=== PATIENT | male | born 1940 | race Caucasian/White ===

== ENCOUNTER 2018-10-29 06:40 | Inpatient (IN) | payer OTHER ==
[2018-10-16 11:30] LABS: BASOPHILS % (AUTO) 0.4 % (0.0-2.0); EOSINOPHILS # (AUTO) 0.1 K/uL (0.0-0.4); EOSINOPHILS % (AUTO) 0.8 % (0.0-4.0); HEMATOCRIT 39.7 % (36-54); HEMOGLOBIN 13.3 g/dL (14.0-18.0); LYMPHOCYTES # (AUTO) 1.8 K/uL (1.0-5.5); LYMPHOCYTES % (AUTO) 27.5 % (20.5-51.5); MEAN CORPUSCULAR HEMOGLOBIN 33 pg (27-31); MEAN CORPUSCULAR HGB CONC 34 % (32-36); MEAN CORPUSCULAR VOLUME 99 fL (79.0-98.0); MONOCYTES # (AUTO) 0.8 K/uL (0.0-1.0); NEUTROPHILS # (AUTO) 3.8 K/uL (1.8-7.7); NEUTROPHILS % (AUTO) 59.3 % (40.0-70.0); PLATELET COUNT (AUTO) 181 K/uL (130-430); RED CELL DISTRIBUTION WIDTH 13.3 % (9.0-15.0); WHITE BLOOD COUNT (AUTO) 6.4 K/uL (4.8-10.8)
[2018-10-16 11:34] LABS: BILIRUBIN,URINE NEGATIVE (NEGATIVE); BLOOD, URINE NEGATIVE (NEGATIVE); CLARITY/URINE CLEAR (CLEAR); COLOR,URINE YELLOW (YELLOW); GLUCOSE,URINE NEGATIVE (NEGATIVE); KETONES,URINE NEGATIVE (NEGATIVE); LEUKOCYTE ESTERASE ,URINE NEGATIVE (NEGATIVE); NITRITE, URINE NEGATIVE (NEGATIVE); PH,URINE 6.5 (5.0-8.0); PROTEIN URINE NEGATIVE (NEGATIVE); UROBILINOGEN,URINE 0.2 (0.2-1.0)
[2018-10-16 11:46] LABS: PROTHROMBIN TIME 10.4 SECS (9.5-12.5)
[2018-10-16 11:52] LABS: ANION GAP 4 (5-15); CALCIUM 9.5 mg/dL (8.4-11.0); CHLORIDE 101 mmol/L (98-107); CREATININE 0.84 mg/dL (0.55-1.30); GLUCOSE 81 mg/dL (70-99); POTASSIUM 4.1 mmol/L (3.5-5.1); SODIUM SERUM 134 mmol/L (136-145); UREA NITROGEN, BLOOD 21 mg/dL (8-21)
[~2018-10-29] VITALS: Ht 167.6 cm; Wt 71.2 kg
[~2018-10-29 06:40] MED LIST: APIX5TAB4 PO
[2018-10-29] MEDS ORDERED: oxyCODONE HCL 10 MG TAB.ER.12H PO ONE ×2 (07:00→07:15)
[2018-10-29] MEDS ORDERED: CEFAZOLIN 2 GM IVPB PREMIX 50 ML IV ONE (07:00)
[2018-10-29] MEDS ORDERED: NACL 0.9% 1,000 ML IV ONE (07:00)
[2018-10-29] MEDS ORDERED: CELECOXIB 200 MG CAPSULE PO ONE (07:00)
[2018-10-29] MEDS ORDERED: GABAPENTIN 300 MG CAPSULE PO ONE (07:00)
[2018-10-29] MEDS ORDERED: TRANEXAMIC ACID 650 MG TABLET PO ONE (07:00)
[2018-10-29] MEDS ORDERED: ACETAMINOPHEN 500 MG TABLET PO ONE (07:00)
[2018-10-29] MEDS ORDERED: ACETAMINOPHEN 500 MG TABLET ONE (07:15)
[2018-10-29] MEDS ORDERED: POLYMYXIN 500,000/BACIT.10,000 UNITS in NS IRR 1 L IR ONE ×2 (07:15→09:38)
[2018-10-29] MEDS ORDERED: TRANEXAMIC ACID 650 MG TABLET ONE (07:16)
[2018-10-29] MEDS ORDERED: CELECOXIB 200 MG CAPSULE ONE (07:16)
[2018-10-29] MEDS ORDERED: GABAPENTIN 300 MG CAPSULE ONE (07:16)
[2018-10-29] MEDS ORDERED: MIDAZOLAM HCL 5 MG/5 ML VIAL IVP ONE (08:15)
[2018-10-29] MEDS ORDERED: ROPIVACAINE HCL/PF 5 MG/ML 0.5% 30 ML VIAL INFIL ONE (08:15)
[2018-10-29] MEDS ORDERED: TRANEXAMIC ACID 1,000 MG/10 ML VIAL IV ONE (08:15)
[2018-10-29] MEDS ORDERED: LR 1,000 ML IV.SOLN IV ONE (08:15)
[2018-10-29] MEDS ORDERED: BUPIVACAINE /PF 0.75% 10 ML VIAL INJ ONE (08:15)
[2018-10-29] MEDS ORDERED: ROPIVACAINE HCL/PF 0.2% (NAROPIN) 200 ML PLAST..BAG EP ONE (08:15)
[2018-10-29] MEDS ORDERED: LIDOCAINE PF 1%, 20 MG/2 ML AMP INJ ONE (08:15)
[2018-10-29] MEDS ORDERED: DIPHENHYDRAMINE INJ 50 MG/ML VIAL IVP PRN ×2 (09:00)
[2018-10-29] MEDS ORDERED: fentaNYL CITRATE/PF 100 MCG/2 ML AMP IVP PRN ×2 (09:00)
[2018-10-29] MEDS ORDERED: ONDANSETRON HCL 4 MG/2 ML VIAL IVP PRN ×2 (09:00)
[2018-10-29] MEDS ORDERED: NALOXONE HCL 0.4 MG/ML AMP (NARCAN) IVP PRN ×2 (09:00)
[2018-10-29] MEDS ORDERED: KETOROLAC TROMETHAMINE 60 MG/2 ML VIAL IM PRN (09:00)
[2018-10-29] MEDS ORDERED: MORPHINE SULFATE 10MG/10ML PF AMP SP SCH (09:00)
[2018-10-29] MEDS: RIVAROXABAN 10 MG TABLET PO SCH (09:00)
[2018-10-29] MEDS ORDERED: OXYCODONE/ACETAMINOPHEN *10*mg/325 mg TABLET PO PRN (09:00)
[2018-10-29] MEDS ORDERED: NALBUPHINE HCL 10 MG/ML AMP IVP PRN ×2 (09:00)
[2018-10-29] MEDS ORDERED: D5/0.45 NS 1,000 ML IV ONE (10:09)
[2018-10-29] MEDS ORDERED: ACETAMINOPHEN 325 MG TABLET PO PRN (10:15)
[2018-10-29] MEDS ORDERED: BISACODYL 10 MG/SUPPOSITORY RC PRN (10:15)
[2018-10-29] MEDS ORDERED: CEFAZOLIN 1 GM IVPB PREMIX 50 ML IV SCH (10:15)
[2018-10-29] MEDS ORDERED: MORPHINE SULFATE 10 MG/ML VIAL IM PRN (10:15)
--- NOTE | 2018-10-29 11:15 | NUR ---
Patient received patient resting in bed, a/ox4, denies pain, assessment complete, dressing to right knee CDI, polar care in place, Q pump in place and Hemovac to suction noted, neurovascular check complete, Pillai catheter in place draining to gravity, SCD's in place, IV line is patent and infusing well, educated the patient and his on plan of care and call light system and to call for any assistance, they verbalized understanding, bed in lowest position, three side rails up, bed alarm on, call light within reach, fall and aspiration precautions in place.
[2018-10-29 11:18] VITALS: BP_SYST 123
--- NOTE | 2018-10-29 11:46 | NUR ---
CONSULTATION PAGED REASON FOR CONSULTATION:HOSPITALIST WAS CONSULT CALLED?Y PERSON WHO WAS NOTIFIED: CONSULTING PHYSICIAN:JOHN LONDONO LEAK GANG SUPERVISOR SPECIALTY:INTERNAL MEDICINE LEAK GANG SUPERVISOR PHONE NUMBER:[phone] REQUESTING PHYSICIAN:CELESTINA EUGENE
--- NOTE | 2018-10-29 11:52 | NUR ---
PAGED PAGED CELESTINA EUGENE AT [phone] SPOKE WITH JESSICA.
--- NOTE | 2018-10-29 11:53 | NUR ---
Pharmacy spoke with Medardo regarding 1015 dose of Ancef, unable to give due to dose being given in OR at 0700 today, returned 1015 dose of Ancef to pharmacy, and Medardo adjusted the time for the next dose, will follow up.
--- NOTE | 2018-10-29 12:10 | NUR ---
Spoke with Dr. Byers regarding IVF orders to clarify, due to patient having a history of hyponatremia, Dr. Byers stated ok to give LR from PACU at this time, and then to call Dr. Uribe regarding any further orders, will follow up.
--- NOTE | 2018-10-29 12:14 | NUR ---
Spoke with Dr. Uribe regarding IV fluid orders, ok to keep patient saline locked.
[2018-10-29 12:20] VITALS: BP_SYST 136
--- NOTE | 2018-10-29 13:15 | NUR ---
Dr. Uribe rounds assessed patient at bedside, will follow up with any new orders.
[2018-10-29 13:48] LABS: BASOPHILS % (AUTO) 0.4 % (0.0-2.0); EOSINOPHILS # (AUTO) 0.1 K/uL (0.0-0.4); EOSINOPHILS % (AUTO) 0.6 % (0.0-4.0); HEMATOCRIT 35.9 % (36-54); HEMOGLOBIN 12.3 g/dL (14.0-18.0); LYMPHOCYTES # (AUTO) 1.8 K/uL (1.0-5.5); LYMPHOCYTES % (AUTO) 20.2 % (20.5-51.5); MEAN CORPUSCULAR HEMOGLOBIN 34 pg (27-31); MEAN CORPUSCULAR HGB CONC 34 % (32-36); MEAN CORPUSCULAR VOLUME 98 fL (79.0-98.0); MONOCYTES # (AUTO) 0.8 K/uL (0.0-1.0); MONOCYTES % (AUTO) 9.3 % (1.7-9.3); NEUTROPHILS # (AUTO) 6.3 K/uL (1.8-7.7); NEUTROPHILS % (AUTO) 69.5 % (40.0-70.0); PLATELET COUNT (AUTO) 171 K/uL (130-430); RED BLOOD CELL COUNT(AUTO) 3.66 MIL/uL (4.2-6.2); RED CELL DISTRIBUTION WIDTH 13.4 % (9.0-15.0); WHITE BLOOD COUNT (AUTO) 9.1 K/uL (4.8-10.8)
[2018-10-29 13:50] LABS: ANION GAP 6 (5-15); CALCIUM 8.3 mg/dL (8.4-11.0); CHLORIDE 106 mmol/L (98-107); CREATININE 0.69 mg/dL (0.55-1.30); GLUCOSE 103 mg/dL (70-99); POTASSIUM 4.2 mmol/L (3.5-5.1); SODIUM SERUM 138 mmol/L (136-145); UREA NITROGEN, BLOOD 14 mg/dL (8-21)
[2018-10-29 13:53] LABS: ALANINE AMINOTRANSFERASE 23 U/L (12-78); ASPARTATE AMINOTRANSFERASE 19 U/L (10-37); TOTAL BILIRUBIN 0.5 mg/dL (0.0-1.0)
[2018-10-29] MEDS: CEFAZOLIN 1 GM IVPB PREMIX 50 ML IV SCH ×2 (14:48→22:16)
--- NOTE | 2018-10-29 14:48 | NUR ---
DC PLANNING Called & spoke w Dr Byers regarding dc planning, gave dc planning ph order. States will discuss w pt tomorrow regarding dc plan home health vs outpt rehab & will update us.
--- NOTE | 2018-10-29 15:00 | NUR ---
RN rounds Patient resting in bed, A/O x4, no complaints of pain, No SOB. Antibiotic infusing as ordered, tolerating well, no adverse side effects noted. Reinforced teaching on use of incentive spirometer, patient verbalized understanding, return demonstration done by patient. Incentive spirometer reading 5000. On fall precautions, bed alarm in place, bed in lowest position, call light within reach. Will continue to monitor.
--- NOTE | 2018-10-29 15:02 | NUR ---
Discharge Planning: DCP faxed pt referral [facility] (f [phone] p [phone]) for home health and PT, [facility] (f [phone] p [phone]) for DME FWW , 3 in 1 [employer], [facility]. DCP to follow up. Addendum: 10/29/18 at 1527 by Lazara Knox DP [facility] (f [phone] p [phone]) for home health and PT per Moises delgado was accepted [facility] (f [phone] p [phone]) per Jadon DME is being ordered walker will be delivered to pt room prior to discharge. Addendum: 10/29/18 at 1544 by Lazara Knox DP DCP made patient aware [facility] (f [phone] p [phone]) accepted him and patient may receive a call, also Jadon from [facility] (f [phone] p [phone]) may call and explain DME and medicare benefit.
[2018-10-29 16:45] VITALS: BP_SYST 127
--- NOTE | 2018-10-29 16:48 | NUR ---
Rn rounds Patient resting in bed, no complaints of pain. No SOB noted. Ancef infusion complete, IV infusion complete, patient on Saline lock as ordered. No other needs at this time, will continue to monitor. On fall precautions, bed in lowest position, 3 side rails up, bed alarm on, call light within reach.
--- NOTE | 2018-10-29 17:43 | NUR ---
RN rounds patient resting in bed, eyes closed, breathing is even and unlabored, no signs of distress, continuing to monitor, bed in lowest position, three side rails up, bed alarm on, call light within reach, fall and aspiration precautions in place.
--- NOTE | 2018-10-29 18:26 | NUR ---
Closing notes Patient sitting up in bed, eating dinner, tolerating well. No complaints of pain, No SOB. Saline lock in place, no swelling noted. Polar care in place, CPM in place, tolerating well. Hemovac draining red to suction. Educated and reinforced the use of incentive spirometer, patient verbalized understanding. On fall and aspiration precaution, HOB elevated during meals, bed kept in lowest position, bed alarm on, call light within reach. All needs met at this time.
--- NOTE | 2018-10-29 19:20 | NUR ---
Bedside report was received from day shift nurse. Pt is fully awake, alert and orientedx4. No acute distress noted at this time. Rt knee dressing is dry and intact with Polar Care in place. Hemovac drain to rt knee noted and compressed with small amount of bloody drainage. On Q pump with Ropivacaine to rt thigh noted and infusing well at 8ml/hr with the dressing dry and intact. CPM to rt knee is on at 0 to 60 degrees and well tolerated by pt. Neurovascular checks to BLE are WNL. Pt was encouraged to use IS 10x Q 1hr WA and pt verbalized understanding. Pt's IS usage is at 5000ml. VSS and pt is afebrile. Pillai Cath to gravity drainage noted with clear yellowish urine. Call light is with pt and bed alarm is on.
[2018-10-29 20:00] VITALS: BP_SYST 122
--- NOTE | 2018-10-29 20:15 | NUR ---
Pt vomited small amount of partially digested food and was offered N/V medication, but pt declined. Pt stated he felt better after vomiting. Pt was assisted with oral care by PARTS SALES REPRESENTATIVE. Fall and safety precautions are in place. Saline lock is intact in without any signs of infiltration.
--- NOTE | 2018-10-29 21:45 | NUR ---
Pt vomited small amount of partially digested food and was offered N/V medication, but pt declined. Pt stated he felt better after vomiting. Pt performed oral care on his own. Extra vomit bag given to pt.
--- NOTE | 2018-10-29 22:30 | NUR ---
CPM machine was removed from rt knee per schedule and rt heel was elevated on a pillow. Pt was instructed not to put pillow underneath his rt knee and pt verbalized understanding. Call light is with pt and bed alarm is on.
[2018-10-29 23:21] VITALS: BP_SYST 139
--- NOTE | 2018-10-30 | NUR ---
Pt is sleeping, but easily arousable. Neurovascular checks to BLE are WNL. Rt heel remains elevated on a pillow. Call light is with pt and bed alarm is on.
--- NOTE | 2018-10-30 02:00 | NUR ---
Pt is sleeping comfortably in bed. Fall and safety precautions are in place.
--- NOTE | 2018-10-30 03:55 | NUR ---
Pt was seen by Anesthesiologist, Dr. Sands. Pt denies pain or discomfort. Neurovascular checks to BLE are WNL. Fall and safety precautions are in place.
--- NOTE | 2018-10-30 05:51 | NUR ---
Pt is awake and not in any distress. Pt denies pain or discomfort. Call light is with pt and bed alarm is on. Rt knee dressing remains dry and intact with Polar care in place.
--- NOTE | 2018-10-30 06:46 | NUR ---
Pt is awake and resting comfortably in bed. No c/o pain or nausea or vomiting. All pt's needs were attended to. No fall or injury noted this shift. Saline lock is intact in LH. Rt knee dressing is dry and intact with Polar Care and Hemovac drain in place. On Q pump is infusing well at 8ml/hr. Rt heel remains elevated on a pillow. Call light is with pt and bed alarm is on. Will endorse to day shift nurse.
[2018-10-30 07:43] VITALS: BP_SYST 97
--- NOTE | 2018-10-30 07:44 | NUR ---
INITIAL NOTE RECEIVED PT IN BED, NO S/S OF DISTRESS OR SOB NOTED, PT HAS NO C/O PAIN AT THIS TIME, PT IN STABLE CONDITION, PT AAXO4, VERBAL. IV CATHETER PATENT, NO SIGNS OF INFECTION OR INFILTRATION NOTED. EDUCATED PT ON USE OF INCENTIVE SPIROMETER, PT TO USE 10 TIMES AN HOUR WHILE AWAKE, PT VERBALIZED UNDERSTANDING, PT AT 5000ML. BED AT LOWEST POSITION, CALL LIGHT WITHIN REACH, WILL CONTINUE TO MONITOR PT FOR ANY CHANGES, FALL AND SAFETY PRECAUTIONS IN PLACE. PT HAS A F/C DRAINING VIA GRAVITY. PT HAS AN ON Q PUMP AT 8ML/HR. PT HAS A HEMOVAC DRAINING. PT HAS POLAR CARE AND TRAPEZE FOR BED MOBILITY. PT ABLE TO MOVE TOES ON RIGHT FOOT, SENSATION PRESENT, CAPILLARY REFILL LESS THAN 3 SECONDS, PULSE PALPABLE, NO PARALYSIS OR TINGLING PER PT. DRESSING CLEAN AND DRY ON RIGHT KNEE.
[2018-10-30] MEDS: RIVAROXABAN 10 MG TABLET PO SCH (08:25)
--- NOTE | 2018-10-30 08:30 | NUR ---
MD ROUNDS DR GALILEA CRUZ, AWARE OF PATIENT'S CONDITION, MD REMOVED HEMOVAC, NO ACTIVE BLEEDING NOTED, DRESSING IN PLACE.
[2018-10-30] MEDS ORDERED: ACETAMINOPHEN 325 MG TABLET PO PRN (09:15)
[2018-10-30] MEDS ORDERED: MORPHINE 4 MG/ML INJ. SYRINGE IVP PRN ×2 (09:15)
[2018-10-30] MEDS ORDERED: NS 250 ML IV ONE (09:30)
--- NOTE | 2018-10-30 09:35 | NUR ---
ROUNDS DR FCO CRUZ AWARE OF PATIENT'S CONDITION, NEW ORDERS GIVEN DUE TO PATIENT' S BLOOD PRESSURE OF 75/55, 83. PT ASYMPTOMATIC, NO HEADACHE OR DIZZINESS. WAS NOT WALKED BY PT DUE TO LOW BLOOD PRESSURE. Addendum: 10/30/18 at 0957 by Kandace Lainez RN recheked blood pressure and it was 81/52, 86, pt continues to be asymptomatic.
[2018-10-30 09:47] LABS: BASOPHILS % (AUTO) 0.2 % (0.0-2.0); EOSINOPHILS % (AUTO) 0.1 % (0.0-4.0); HEMATOCRIT 36.5 % (36-54); HEMOGLOBIN 12.2 g/dL (14.0-18.0); LYMPHOCYTES # (AUTO) 1.1 K/uL (1.0-5.5); LYMPHOCYTES % (AUTO) 11.2 % (20.5-51.5); MEAN CORPUSCULAR HEMOGLOBIN 33 pg (27-31); MEAN CORPUSCULAR HGB CONC 34 % (32-36); MEAN CORPUSCULAR VOLUME 99 fL (79.0-98.0); MONOCYTES # (AUTO) 0.8 K/uL (0.0-1.0); MONOCYTES % (AUTO) 8.7 % (1.7-9.3); NEUTROPHILS # (AUTO) 7.7 K/uL (1.8-7.7); NEUTROPHILS % (AUTO) 79.8 % (40.0-70.0); PLATELET COUNT (AUTO) 176 K/uL (130-430); RED BLOOD CELL COUNT(AUTO) 3.68 MIL/uL (4.2-6.2); RED CELL DISTRIBUTION WIDTH 13.4 % (9.0-15.0); WHITE BLOOD COUNT (AUTO) 9.6 K/uL (4.8-10.8)
[2018-10-30 09:52] LABS: ALANINE AMINOTRANSFERASE 16 U/L (12-78); ALBUMIN 2.9 g/dL (3.4-4.8); ANION GAP 12 (5-15); ASPARTATE AMINOTRANSFERASE 15 U/L (10-37); CALCIUM 8.3 mg/dL (8.4-11.0); CHLORIDE 99 mmol/L (98-107); CREATININE 0.96 mg/dL (0.55-1.30); GLUCOSE 124 mg/dL (70-99); SODIUM SERUM 133 mmol/L (136-145); TOTAL BILIRUBIN 0.9 mg/dL (0.0-1.0); UREA NITROGEN, BLOOD 12 mg/dL (8-21)
--- NOTE | 2018-10-30 10:20 | NUR ---
ROUNDS PT IN BED, NO S/S OF DISTRESS OR SOB NOTED, PT HAS NO C/O PAIN AT THIS TIME, PT IN STABLE CONDITION, PT WATCHING TV, WILL CONTINUE TO MONITOR PT FOR ANY CHANGES.
--- NOTE | 2018-10-30 10:21 | NUR ---
Nutrition Update Breezy Scale 17 noted. Pt admitted for unilateral primary osteoarthritis, R knee. Diet: regular BMI: 25.3 kg/m2 RD to follow per nutrition care standards.
[2018-10-30 12:10] VITALS: BP_SYST 89
[2018-10-30] MEDS: HYDROcodone/ACETAMIN 7.5-325 MG TAB PO PRN (13:10)
--- NOTE | 2018-10-30 14:24 | NUR ---
CALL DR FCO MARTINEZ TO LET HIM KNOW ABOUT PATIENT'S BLOOD PRESSURE OF 83/53, 84, PT ASYMPTOMATIC. Addendum: 10/30/18 at 1436 by Kandace Lainez RN CALLED BACK AND GAVE NO NEW ORDERS, MADE AWARE OF THE RESULTS OF THE CMC AND CMP ALONG WITH EJECTION FRACTION FROM 2D ECHO THIS MORNING.
--- NOTE | 2018-10-30 16:04 | NUR ---
MD CALL DR CARLOS MANUEL CRUZ, AWARE OF PATIENT'S CONDITION.
[2018-10-30 16:11] VITALS: BP_SYST 86
--- NOTE | 2018-10-30 18:27 | NUR ---
CLOSING NOTE PT IN BED, NO S/S OF DISTRESS OR SOB NOTED, PT HAS NO C/O PAIN AT THIS TIME, PT IN STABLE CONDITION, PT AAXO4, VERBAL. IV CATHETER PATENT, NO SIGNS OF INFECTION OR INFILTRATION NOTED. EDUCATED PT ON USE OF INCENTIVE SPIROMETER, PT AT 5000ML. BED AT LOWEST POSITION, CALL LIGHT WITHIN REACH, WILL ENDORSE CARE OF PT TO INCOMING NURSE, FALL AND SAFETY PRECAUTIONS IN PLACE. PT HAS A F/C DRAINING VIA GRAVITY. PT HAS AN ON Q PUMP AT 8ML/HR. PT HAS POLAR CARE AND TRAPEZE FOR BED MOBILITY. PT ABLE TO MOVE TOES ON RIGHT FOOT, SENSATION PRESENT, CAPILLARY REFILL LESS THAN 3 SECONDS, PULSE PALPABLE, NO PARALYSIS OR TINGLING PER PT. DRESSING CLEAN AND DRY ON RIGHT KNEE.
--- NOTE | 2018-10-30 19:28 | NUR ---
Pt is fully awake, alert and orientedx4. No acute distress noted at this time. Rt knee dressing is dry and intact with Polar Care in place. On Q pump with Ropivacaine to rt thigh noted and infusing well at 8ml/hr with the dressing dry and intact. CPM to rt knee is on at 0 to 63 degrees and well tolerated by pt. Neurovascular checks to BLE are WNL. Pt was encouraged to use IS 10x Q 1hr WA and pt verbalized understanding. Pt's IS usage is at 5000ml. Pillai Cath to gravity drainage noted with clear yellowish urine. Fall and safety precautions are in place. Call light is with pt and bed alarm is on.
[2018-10-30 20:00] VITALS: BP_SYST 129
--- NOTE | 2018-10-30 20:15 | NUR ---
Pt stopped CPM machine on his own and requested to have it removed. Pt denies pain, but stated he wanted to sleep for tonight. CPM machine removed and rt heel was elevated on a pillow. Rt knee dressing is dry and intact with Polar care in place. Call light is with pt and bed alarm is on.
--- NOTE | 2018-10-30 22:00 | NUR ---
Pt is sleeping comfortably in bed. Rt heel remains elevated on a pillow. Fall and safety precautions are in place.
[2018-10-31 00:23] VITALS: BP_SYST 115
--- NOTE | 2018-10-31 02:00 | NUR ---
Pt is sleeping comfortably in bed. Fall and safety precautions are in place.
--- NOTE | 2018-10-31 04:00 | NUR ---
Pt denies pain or discomfort. Neurovascular checks to BLE are WNL. Fall and safety precautions are in place.
--- NOTE | 2018-10-31 05:12 | NUR ---
Pt is sleeping quietly in bed. Fall and safety precautions are in place.
--- NOTE | 2018-10-31 06:30 | NUR ---
Pillai Cath removed per MD's order. Urinal placed at pt's bedside.
--- NOTE | 2018-10-31 07:33 | NUR ---
AM ROUNDS: PATIENT AWAKE ,ALERT AND ORIENTED X3. RIGHT KNEE DRESSING CLEAN AND DRY. ON Q PUMP AT 8CC/H ORDERED,DRESSING CLEAN AND DRY. CALL LIGHT WITH IN REACH. BED LOCKED AT LOWEST POSITION. WITH PILLOW UNDERNEATH RIGHT FOOT.STABLE.
[2018-10-31 08:15] VITALS: BP_SYST 114
--- NOTE | 2018-10-31 08:30 | NUR ---
Incentive Spirometry: Patient rendered incentive spirometry up to 2000ml ,instructed every hour 8-10 times.
--- NOTE | 2018-10-31 08:31 | NUR ---
SURGEON PAGED: SPOKE WITH DR TORREZ AND RELAYED X-RAY ABDOMEN AND WILL SEE PATIENT TODAY TO DISCUSS ABOUT PLAN OF CARE. Addendum: 10/31/18 at 5532 by Flower Nickerson RN CORRECTED ABOVE NOTES: NOT INTENDED FOR THE ABOVE PATIENT.
[2018-10-31] MEDS: HYDROcodone/ACETAMIN 7.5-325 MG TAB PO PRN ×2 (09:36→16:15)
[2018-10-31] MEDS: RIVAROXABAN 10 MG TABLET PO SCH (09:38)
--- NOTE | 2018-10-31 09:45 | NUR ---
SITTING ON THE CHAIR: PHYSICAL THERAPIST WORKING WITH THE PATIENT.SITTING ON THE RECLINER CHAIR,ELEVATED BOTH LE.ON Q PUMP INTACT.
--- NOTE | 2018-10-31 10:20 | NUR ---
VOIDED: POST DC AIKEN,VOIDED VIA URINAL.
[2018-10-31 11:22] VITALS: BP_SYST 99
--- NOTE | 2018-10-31 12:30 | NUR ---
lunch: at the bedside.patient eating lunch.
--- NOTE | 2018-10-31 14:35 | NUR ---
rn rounds: resting. cpm on . neuro salazar with in normal limit.
[2018-10-31 14:54] VITALS: BP_SYST 101
--- NOTE | 2018-10-31 16:15 | NUR ---
pain meds: c/o post op pain at right knee,due po norco given for pain level 4 /10.no problem.
--- NOTE | 2018-10-31 16:20 | NUR ---
Rn Notes: Home cpm measures rendered by Linus from home use [employer].
--- NOTE | 2018-10-31 18:25 | NUR ---
CLOSING NOTES: PATIENT EATING DINNER DURING ROUNDS. ON Q PUMP AT 8CC/H.WITH MILD PAIN NOTED.RIGHT KNEE DRESSING CLEAN AND DRY,WITH POLAR CARE ATTACHED TO KNEE.CPM OFF,PATIENT HAVING DINNER. IV SALINE INTACT. WITH PILLOW UNDERNEATH THE RIGHT HEEL. CALL LIGHT WITH IN REACH. BED LOCKED AT LOWEST POSITION.BED ALARM ON.CONDITION GUARDED.STABLE HEART RATE.CARDIO CONSULT WAS PAGED BY REGISTERED SAFETY ENGINEER.
--- NOTE | 2018-10-31 18:27 | NUR ---
CONSULTATION PAGED/CALLED Reason for Consultation: NEW ON SET AFIB Person Who was Notified: ASAD Consulting Physician: CAILIN. DOCTOR POTTER IS DEPOSITION OPERATOR Field Software Engineer Specialty: CARDIO Ordering Physician: FCO
--- NOTE | 2018-10-31 19:20 | NUR ---
INITIAL NOTES RECEIVED HANDOFF REPORT FROM OFFGOING NURSE AT THE BEDSIDE. PATIENT CURRENTLY RESTING COMFORTABLY IN BED, AWAKE AND ALERT. FAMILY IS AT THE BEDSIDE. NO SOB, NO ACUTE DISTRESS, NO SIGNS OF PAIN OR FACIAL GRIMACING NOTED. BED IS LOCKED, IN THE LOWEST POSITION, 2X SIDE RAILS UP, BED ALARM IS ON. CALL LIGHT IS WITHIN REACH. ENCOURAGED PATIENT TO CALL FOR ASSISTANCE. WILL CONTINUE WITH PLAN OF CARE.
--- NOTE | 2018-10-31 19:36 | NUR ---
DR POTTER CURRENTLY AT THE BEDSIDE TO SPEAK WITH THE PATIENT.
[2018-10-31 20:00] VITALS: BP_SYST 140
--- NOTE | 2018-10-31 20:00 | NUR ---
ON Q PUMP INTACT, CURRENTLY RUNNING AT 8ML/HOUR
--- NOTE | 2018-10-31 20:15 | NUR ---
PATIENT ABLE TO DEMONSTRATE PROPER INCENTIVE SPIROMETER USAGE. ABLE TO REACH 1500 AT THIS TIME. ENCOURAGED PATIENT TO USE THE INCENTIVE SPIROMETER FREQUENTLY. FAMILY AT THE BEDSIDE ALSO EDUCATED ON INCENTIVE SPIROMETER USAGE. PATIENT CURRENTLY NOT CONNECTED TO POLAR CARE MACHINE. EDUCATED PATIENT ON BENEFITS OF POLAR CARE, AND PATIENT VERBALIZED UNDERSTANDING AND AGREED TO RECONNECT TO THE [employer] CARE MACHINE. CALL LIGHT WITHIN REACH. ENCOURAGED PATIENT TO CALL FOR ASSISTANCE.
--- NOTE | 2018-10-31 22:07 | NUR ---
PATIENT RESTING COMFORTABLY IN BED, SLEEPING. NO SOB, NO ACUTE DISTRESS, NO SIGNS OF PAIN OR FACIAL GRIMACING NOTED. BREATHING EVEN AND UNLABORED WITH VISIBLE CHEST RISE AND FALL NOTED. BED IS LOCKED, IN THE LOWEST POSITION, 2X SIDE RAILS UP, BED ALARM IS ON. CALL LIGHT IS WITHIN REACH.
--- NOTE | 2018-10-31 23:58 | NUR ---
PATIENT RESTING COMFORTABLY IN BED, EYES CLOSED. EASILY AROUSABLE TO TOUCH. NO SOB, NO ACUTE DISTRESS, NO COMPLAINTS OF PAIN AT THIS TIME. BED IS LOCKED, IN THE LOWEST POSITION, 2X SIDE RAILS UP, BED ALARM IS ON. CALL LIGHT IS WITHIN REACH. ENCOURAGED PATIENT TO CALL FOR ASSISTANCE.
[2018-11-01 00:25] VITALS: BP_SYST 154
--- NOTE | 2018-11-01 01:20 | NUR ---
PATIENT DISCONNECTED [facility] CARE INDEPENDENTLY TO GET OUT OF BED TO USE THE RESTROOM. ABLE TO AMBULATE TO THE RESTROOM AND BACK TO BED INDEPENDENTLY WITHOUT ASSISTANCE USING FWW, GAIT IS STEADY. NOW RESTING COMFORTABLY IN BED. ASSISTED PATIENT TO RECONNECTED TO THE [facility]. CALL LIGHT WITHIN REACH. ENCOURAGED PATIENT TO CALL FOR ASSISTANCE.
--- NOTE | 2018-11-01 03:30 | NUR ---
PATIENT RESTING COMFORTABLY IN BED. EASILY AROUSABLE BY SOUND. NO SOB, NO ACUTE DISTRESS, NO COMPLAINTS OF PAIN. STABLE. CALL LIGHT WITHIN REACH. ENCOURAGED PATIENT TO CALL FOR ASSISTANCE.
--- NOTE | 2018-11-01 06:33 | NUR ---
CLOSING NOTES PATIENT RESTING COMFORTABLY IN BED, AWAKE AND ALERT. NO SOB, NO ACUTE DISTRESS. NO COMPLAINTS OF PAIN. IV SITE TO LEFT HAND #18G INTACT, DRESSING CLEAN AND INTACT, SALINE LOCKED. HEELS ELEVATED ON PILLOWS, AND POLAR CARE IN PLACE FOR THE RIGHT KNEE. BED IS LOCKED, IN THE LOWEST POSITION, 2X SIDE RAILS UP, BED ALARM IS ON. CALL LIGHT IS WITHIN REACH. FALL AND SAFETY PRECAUTIONS MAINTAINED. ALL NEEDS HAVE BEEN MET DURING THIS SHIFT. WILL ENDORSE CARE TO ONCOMING DAYSHIFT NURSE.
--- NOTE | 2018-11-01 07:22 | NUR ---
AM ROUNDS: PATIENT SLEEPING DURING ROUNDS. RECEIVED REPORT FROM NIGHT NURSE INNA. RIGHT KNEE DRESSING CLEAN AND DRY. ON Q PUMP ,CLEAN AND DRY. POSSIBLE HOME TODAY . CALL LIGHT WITH IN REACH. BED LOCKED AT LOWEST POSITION. BED ALARM ON.
[2018-11-01 08:02] VITALS: BP_SYST 138
[2018-11-01] MEDS: RIVAROXABAN 10 MG TABLET PO SCH (08:52)
--- NOTE | 2018-11-01 10:30 | NUR ---
PHYSICAL THERAPY: PHYSICAL THERAPIST WORKING WITH THE PATIENT.
--- NOTE | 2018-11-01 12:13 | NUR ---
rn rounds: patient on the bed,cpm on. denies any pain. at the bedside. stable.
--- NOTE | 2018-11-01 12:14 | NUR ---
Dc Tele: Downgraded to medical surgical unit as ordered.
[2018-11-01 12:23] VITALS: BP_SYST 107
[2018-11-01 12:41] VITALS: BP_SYST 107
[2018-11-01] MEDS ORDERED: RIVA10TA PO (12:59)
[2018-11-01] MEDS: HYDROcodone/ACETAMIN 7.5-325 MG TAB PO PRN (13:31)
--- NOTE | 2018-11-01 13:31 | NUR ---
ANESTHESIOLOGIST: DR MOTA REMOVED ON Q PUMP, BAND AID PLACED,NO BLEEDING TO THE SITE.
--- NOTE | 2018-11-01 14:21 | NUR ---
Dc Order: Spoke with Dr Uribe and with orders dc home with home health for PT.Ortho cleared patient home and beauty operator apprentice as well.
--- NOTE | 2018-11-01 15:00 | NUR ---
D/C Patient Patient given medication reconciliation form and D/C instructions. Exit Care provided. Patient verbalized understanding. MD discussed with patient the results and treatment provided. Ambulatory with assistive device,tolerated well for discharge to home. Patient in stable condition, ID band removed. IV catheter removed, intact and dressing applied, no active bleeding. Rx given by Dr Byers at bedside. Patient educated on pain management. All belongings sent with patient.Accompanied home by his kevin.
--- NOTE | 2018-11-02 10:40 | NUR ---
Discharge Planning: DCP called [facility] (f [phone] p [phone]) to verify appointments for HH nurse today between 11:00am-1:00pm and PT at 4:00pm per cordelia Kline.
--- NOTE | 2018-11-08 14:13 | NUR ---
Discharge Follow Up Phone Call GAS METER INSTALLER HELPER phoned patient, . On 11/06/18 called twice, but they could not hear me. Left a voicemail message on 11/08/18 and patient's , Raisa, returned the call. She stated that patient had prescriptions filled prior to admission. A follow up appointment was made with Dr Byers for 11/12/18. [facility] health nurse and PT are coming to the home and Raisa is happy with the service. Discussed caring for patient with dementia. Offered support. They will move to son's home in order to have more help as patient cannot be left alone. No other questions or concerns.
== END 2018-11-01 15:00 | disposition home health service (06) | DRG 470 ==
LOC: SMU 06:40 → STU 10-30 09:26
PROVIDERS: ADMIT Orthopaedic Surgery; ATTEND Orthopaedic Surgery
PROC: 0QTD0ZZ Resection of Right Patella, Open Approach (ICD-10-PCS; 2018-10-29)
PROC: 0SRC0J9 Replacement of Right Knee Joint with Synthetic Substitute, Cemented, Open Approach (ICD-10-PCS; principal; 2018-10-29 08:30)
DX: M17.11 Unilateral primary osteoarthritis, right knee (principal); E87.0 Hyperosmolality and hypernatremia; F03.90 Unspecified dementia, unspecified severity, without behavioral disturbance, psychotic disturbance, mood disturbance, and anxiety; I10 Essential (primary) hypertension; I95.1 Orthostatic hypotension; I48.2 Chronic atrial fibrillation; Z79.01 Long term (current) use of anticoagulants
CPT/HCPCS: 36415; 71046-TC; 80048; 80053; 81003; 85025; 85610-TC; 85730-TC; 87081; 88305; 88311; 93005; 93306; 97039; 97110-GP; 97116-GP; 97530-GP; C1713; C1776; G0378; J0690; J1885; J2001; J2250; J2274; J3490; J7050; J7120